=== PATIENT | female | born 1950 | race Caucasian/White ===

== ENCOUNTER 2017-07-16 09:30 | Outpatient (CLI) | payer MEDICARE, BC | END 2017-07-16 09:31 | disposition home or self-care (01) | LOC: BICMAMMO 09:30 | PROVIDERS: ATTEND Radiology Diagnostic Radiology | DX: N63.10 Unspecified lump in the right breast, unspecified quadrant (principal); N63.20 Unspecified lump in the left breast, unspecified quadrant; Z80.3 Family history of malignant neoplasm of breast; R92.1 Mammographic calcification found on diagnostic imaging of breast; R92.8 Other abnormal and inconclusive findings on diagnostic imaging of breast; Z12.31 Encounter for screening mammogram for malignant neoplasm of breast | CPT/HCPCS: 76642; 77063; G0202; 77067 ==

== ENCOUNTER 2018-07-12 10:40 | Outpatient (CLI) | payer MEDICARE, BC ==
--- NOTE | 2018-07-12 13:12 | MRI ---
MRI OF LUMBAR SPINE WITHOUT CONTRAST: Date: 07-12-18 History: Low back pain with lumbar radiculopathy. Technique: Multiplanar, multisequence MR imaging of the lumbar spine provided without contrast. FINDINGS: The sagittal STIR imaging demonstrates no focal area of osseous marrow edema. Mild anterolisthesis of L4 on L5 measures 4-5 mm. On the basis of five lumbar type vertebral bodies, the conus medullaris terminates at T12-L1. T12-L1: No central canal or neural foraminal stenosis. L1-2: No central canal or neural foraminal stenosis. L2-3: Mild disc space narrowing with disc desiccation. No significant central canal or neural foramin al stenosis. L3-4: Disc desiccation. Minimal disc bulge. Central annular tear. No central canal or neural foramina l stenosis. L4-5: Disc desiccation and mild disc space narrowing. Bilateral facet hypertrophy, right greater than left. Mild right neural foraminal stenosis. No central canal or left neural foraminal stenosis. L5-S1: No central canal or neural foraminal stenosis. Imaged retroperitoneal structures appear grossly unremarkable. IMPRESSION: Bilateral facet hypertrophy at L4-5 with mild anterolisthesis. Mild neural foraminal stenosis on the right L4-5. No severe central canal or neural foraminal stenosis. POS: JACKIE
--- NOTE | 2018-07-12 14:02 | RAD ---
4 VIEWS LUMBAR SPINE: Date: 07/12/18 COMPARISON: None. HISTORY: Lumbar radiculopathy. FINDINGS: Frontal imaging demonstrates facet hypertrophy at L4-5. Pedicles appear intact on frontal imaging. Ne utral lateral examination demonstrates minimal anterolisthesis of L4 on L5 measuring in the 2.0 mm ra nge. There is atherosclerotic calcification of the abdominal aorta anterior to L3. Flexion imaging de monstrates anterolisthesis of L4 on L5 measuring 5.0 mm. On extension imaging, the anterolisthesis of L4 on L5 measures 2.0 mm. IMPRESSION: No acute osseous abnormality. Mild anterolisthesis of L4 on L5, most prominent with flexion. POS: H
== END 2018-07-12 10:41 | disposition home or self-care (01) ==
LOC: MRI 10:40
PROVIDERS: ATTEND Surgery
DX: M54.16 Radiculopathy, lumbar region (principal); M43.16 Spondylolisthesis, lumbar region; M48.061 Spinal stenosis, lumbar region without neurogenic claudication
CPT/HCPCS: 72100; 72120; 72148

== ENCOUNTER 2018-11-16 12:42 | Outpatient (CLI) | payer MEDICARE, BC ==
--- NOTE | 2018-11-16 14:15 | MMO ---
Bilateral MAMMO Bilat Screen [facility]. CLINICAL HISTORY: Patient is 68 years old and is seen for screening. The patient has the following family history of breast cancer: paternal grandmother, at age 45. The patient has no personal history of cancer. The patient has a history of left Excisional Biopsy in 1969? - fibroid cyst. VIEWS: The views performed were: bilateral craniocaudal with tomosynthesis and bilateral mediolateral oblique with tomosynthesis. FILMS COMPARED: The present examination has been compared to prior imaging studies performed at [facility] on 12/11/1999, 12/29/2000, 01/10/2002, 01/10/2003, 03/19/2004, 04/21/2005, 04/28/2006, 07/20/2007, 08/23/2008, 08/24/2009, 10/23/2010, 10/27/2011, 12/16/2012, 01/11/2014, 02/22/2015, 04/16/2016 and 07/16/2017. MAMMOGRAM FINDINGS: There are scattered fibroglandular densities. There are stable benign appearing calcifications seen in both breasts. There are no suspicious masses, suspicious calcifications, or new areas of architectural distortion. IMPRESSION: THERE IS NO MAMMOGRAPHIC EVIDENCE OF MALIGNANCY. A ROUTINE FOLLOW-UP MAMMOGRAM IN 1 YEAR IS RECOMMENDED. THE RESULTS OF THIS EXAM WERE SENT TO THE PATIENT. ACR BI-RADS Category 2 - Benign finding MAMMOGRAPHY NOTE: 1. A negative mammogram report should not delay a biopsy if a dominant of clinically suspicious mass is present. 2. Approximately 10% to 15% of breast cancers are not detected by mammography. 3. Adenosis and dense breasts may obscure an underlying neoplasm.
== END 2018-11-16 12:43 | disposition home or self-care (01) ==
LOC: BICMAMMO 12:42
PROVIDERS: ATTEND Family Medicine
DX: Z12.31 Encounter for screening mammogram for malignant neoplasm of breast (principal); Z80.3 Family history of malignant neoplasm of breast
CPT/HCPCS: 77063; 77067

== ENCOUNTER 2022-09-02 11:54 | Day surgery (SDC) | payer MEDICARE, BC ==
[2022-09-02] MEDS ORDERED: Lidocaine 1% PF 5 ML VIAL ONE (13:53)
[2022-09-02] MEDS ORDERED: Sodium Bicarbonate 2.5 MEQ/5 ML VIAL ONE (13:53)
[2022-09-02 14:48] VITALS: BP 141/50; TEMP 98.1
== END 2022-09-02 14:50 | disposition home or self-care (01) ==
LOC: ULT 11:54
PROVIDERS: ATTEND Internal Medicine Endocrinology, Diabetes & Metabolism
PROC: 0G9H3ZX Drainage of Right Thyroid Gland Lobe, Percutaneous Approach, Diagnostic (ICD-10-PCS; principal; 2022-09-02)
DX: E04.1 Nontoxic single thyroid nodule (principal); Z79.890 Hormone replacement therapy; Z79.899 Other long term (current) drug therapy; Z88.2 Allergy status to sulfonamides; Z88.5 Allergy status to narcotic agent
CPT/HCPCS: 10005; 88173; 88305